=== PATIENT | female | born 1985 | race Caucasian/White ===

== ENCOUNTER → 2016-06-16 | Outpatient (CLI) | payer BC ==
--- NOTE | 2016-06-17 07:12 | US ---
EXAMINATION TYPE: US thyroid st tissue head/neck DATE OF EXAM: 06/16/2016 3:52 PM COMPARISON: yes 2010 CLINICAL History: follow up nodule GLAND SIZE: Right Lobe: 5.9 x 2.4 x 2.6 cm Overall Parenchyma: heterogenous Left Lobe: 5.6 x 2.4 x 2.4 cm Overall Parenchyma: heterogeneous Isthmus Thickness: 0.5 cm NODULES RIGHT: # of nodules measured on right: 1 1. 0.7X 0.5 x1.5 cm isoechoicsolid nodule at the lower pole with well-defined margins; . This nod ule is wider than tall and shows no intranodular vascularity. Prior size: not seen LEFT: # of nodules measured on left: 1 1. 1.0 X 0.7 x 0.4 cm echogenic solid nodule at the lower pole with well-defined margins; . This n odule is wider than tall and shows no intranodular vascularity. Prior size: 0.9 x 0.9 x 0.7 cm TECHNOLOGIST IMPRESSION: Bilateral neck scanned, no abnormal lymphadenopathy noted. The thyroid gland is enlarged with heterogeneous tissue bilaterally IMPRESSION: There is a single nodule noted bilaterally as discussed above with no significant change in the previ ous nodule. New nodule on the right measures 1.5 cm in greatest axis. Correlate for thyroiditis
== END | disposition home or self-care (01) ==
LOC: RADUSWWP 15:25
PROVIDERS: ATTEND Internal Medicine Endocrinology, Diabetes & Metabolism
DX: E04.2 Nontoxic multinodular goiter (principal)
CPT/HCPCS: 76536

== ENCOUNTER → 2016-06-22 | Outpatient (CLI) | payer BC | END | disposition home or self-care (01) | LOC: LABWHC1 11:21 | PROVIDERS: ATTEND Internal Medicine Endocrinology, Diabetes & Metabolism | DX: E03.8 Other specified hypothyroidism (principal) | CPT/HCPCS: 36415; 84443 ==

== ENCOUNTER → 2016-08-17 | Outpatient (CLI) | payer BC | END | disposition home or self-care (01) | LOC: LABWHC1 12:59 | PROVIDERS: ATTEND Internal Medicine Endocrinology, Diabetes & Metabolism | DX: E03.8 Other specified hypothyroidism (principal) | CPT/HCPCS: 36415; 84443 ==

== ENCOUNTER → 2016-11-23 | Outpatient (CLI) | payer BC ==
[2016-11-23 17:18] VITALS: BP 123/84; PULSE 88; TEMP 98; BMI 49.1
== END | disposition home or self-care (01) ==
LOC: BARWHC3 15:44
PROVIDERS: ATTEND Surgery Plastic and Reconstructive Surgery
DX: Z01.818 Encounter for other preprocedural examination (principal); E66.01 Morbid (severe) obesity due to excess calories; Z68.42 Body mass index [BMI] 45.0-49.9, adult; E89.1 Postprocedural hypoinsulinemia; D50.8 Other iron deficiency anemias; E44.0 Moderate protein-calorie malnutrition; E55.9 Vitamin D deficiency, unspecified; E11.9 Type 2 diabetes mellitus without complications; I11.9 Hypertensive heart disease without heart failure; G47.30 Sleep apnea, unspecified
CPT/HCPCS: 99211

== ENCOUNTER 2016-12-28 09:40 | Day surgery (SDC) | payer BC ==
[2016-12-26 11:46] VITALS: BMI 50.5
[~2016-12-28 09:40] MED LIST: LACTATED RINGERS 1,000 ML IV SCH; LIDOCAINE 1% 20 ML VIAL (10MG/ML) FOR IV START INTRADERMA PRN
[2016-12-28 10:05] VITALS: RESP 16; TEMP 97.4
--- NOTE | 2016-12-28 10:06 | P.GSHP ---
History of Present Illness H&P Date: 12/28/16 CHIEF COMPLAINT: GERD HISTORY OF PRESENT ILLNESS: The patient is a 31-year-old female who presents reports gastroesophageal reflux disease. Upper endoscopy was offered for further evaluation and management. PAST MEDICAL HISTORY: Please see list. PAST SURGICAL HISTORY: Please see list. MEDICATIONS: Please see list. ALLERGIES: Please see list. SOCIAL HISTORY: No illicit drug use FAMILY HISTORY: No reports of Crohn disease or ulcerative colitis. REVIEW OF ORGAN SYSTEMS: CONSTITUTIONAL: No reports of fevers or chills. GI: Denies any blood in stools or constipation. PHYSICAL EXAM: VITAL SIGNS: Stable GENERAL: Well-developed and pleasant in no acute distress. HEENT: No scleral icterus. Extraocular movements grossly intact. Moist buccal mucosa. NECK: Supple without lymphadenopathy. CHEST: Unlabored respirations. Equal bilateral excursions. CARDIOVASCULAR: Regular rate and rhythm. Distal 2+ pulses. ABDOMEN: Soft, nondistended. MUSCULOSKELETAL: No clubbing, cyanosis, or edema. ASSESSMENT: 1. Gastroesophageal reflux disease PLAN: 1. 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, thyroid goiter & nodules History of Any Multi-Drug Resistant Organisms: None Reported Past Surgical History: No Surgical Hx Reported Additional Past Surgical History / Comment(s): wisdom teeth Past Anesthesia/Blood Transfusion Reactions: Family History of Problems w/ Anesthesia Additional Past Anesthesia/Blood Transfusion Reaction / Comment(s): pt never had anesthesia, grandfather had some kind of problem w/anesthesia but not sure what Smoking Status: Never smoker - Past Family History Mother Family Medical History: No Reported History Medications and Allergies Home Medications Medication Instructions Recorded Confirmed Type Levothyroxine Sodium [Synthroid] 250 mcg PO DAILY 11/23/16 12/26/16 History metFORMIN HCL [Metformin HCl] 1,000 mg PO BID 11/23/16 12/26/16 History ALPRAZolam [Xanax] 0.5 mg PO BID PRN 12/26/16 12/26/16 History Allergies Allergy/AdvReac Type Severity Reaction Status Date / Time acetaminophen Allergy Rash/Hives Verified 12/26/16 11:00 [From Tylenol-Codeine] codeine phosphate Allergy Rash/Hives Verified 12/26/16 11:00 [From Tylenol-Codeine] Surgical - Exam Vital Signs Temp Pulse Resp BP Pulse Ox 97.4 F L 70 16 133/73 98 12/28/16 10:04 12/28/16 10:04 12/28/16 10:04 12/28/16 10:04 12/28/16 10:04
[2016-12-28 10:17] LABS: Glucose,Whole Blood 97 mg/dL (75-99)
[2016-12-28] MEDS ORDERED: LIDOCAINE 1% 20 ML VIAL (10MG/ML) FOR IV START INTRADERMA ONE (10:20)
[2016-12-28] MEDS ORDERED: LIDOCAINE 1% INJ 10MG/ML (20 ML MDV) ONE (10:29)
[2016-12-28] MEDS ORDERED: PROPOFOL 10 MG/ML 20 ML VIAL IV ONE (10:29)
--- NOTE | 2016-12-28 10:44 | P.PCN ---
Date of Procedure: 12/28/16 Preoperative Diagnosis: Postoperative Diagnosis: Procedure(s) Performed: Implants: Indications for Procedure: Operative Findings: Description of Procedure: PREOPERATIVE DIAGNOSIS: Gastroesophageal reflux disease. Morbid obesity. POSTOPERATIVE DIAGNOSIS: Morbid obesity. Gastritis. Gastroesophageal reflux disease. Erosive esophagitis. OPERATION: Esophagogastroduodenoscopy with biopsies along antrum. SURGEON: Anastasia Alvarado MD ANESTHESIA: MAC. INDICATIONS: The patient is a 31-year-old female who presents with a history of reflux disease. Benefits and risks of the procedure were described. Informed consent was obtained. DESCRIPTION: The patient was brought into the endoscopy suite and laid in the left lateral decubitus position. An Olympus gastroscope was passed along the posterior oropharynx down to the distal esophagus where the squamocolumnar junction was encountered at 40 cm from the incisors. The stomach was entered and no bile reflux was found. Additional findings are listed below. Biopsies with cold forceps were obtained of the antrum. The first through third portion of the duodenum was examined and unremarkable. Retroflexion of the scope confirmed Hill grade 2 lower esophageal valve. The squamocolumnar junction demostrated LA grade C erosive esophagitis. The stomach was desufflated. The patient tolerated the procedure well. FINDINGS: Squamocolumnar junction 40 cm from the incisors. Diaphragmatic hiatus at 40 cm. Hill grade 2 lower esophageal valve. LA grade C erosive esophagitis. No active duodenitis. Chronic gastritis. RECOMMENDATIONS: Start medical therapy. Further recommendations pending results of pathology report. Upper endoscopy as needed. Will benefit from antireflux surgical procedure Plan - Discharge Summary New Discharge Prescriptions: No Action Levothyroxine Sodium [Synthroid] 250 mcg PO DAILY metFORMIN HCL [Metformin HCl] 1,000 mg PO BID ALPRAZolam [Xanax] 0.5 mg PO BID PRN PRN Reason: Anxiety Discharge Medication List Levothyroxine Sodium [Synthroid] 250 mcg PO DAILY 11/23/16 [History] metFORMIN HCL [Metformin HCl] 1,000 mg PO BID 11/23/16 [History] ALPRAZolam [Xanax] 0.5 mg PO BID PRN 12/26/16 [History] Follow up Appointment(s)/Referral(s): Anastasia Alvarado MD [STAFF PHYSICIAN] - 01/11/17 Patient Instructions/Handouts: Gastritis (GEN), Diet for Stomach Ulcers and Gastritis (GEN) Discharge Disposition: HOME SELF-CARE
[2016-12-28 11:09] VITALS: PULSE 79
[2016-12-28 11:36] VITALS: BP 130/70
== END 2016-12-28 12:10 | disposition home or self-care (01) ==
LOC: ORWHC2ENDO 09:40
PROVIDERS: ATTEND Surgery Plastic and Reconstructive Surgery
DX: K29.50 Unspecified chronic gastritis without bleeding (principal); K21.0 Gastro-esophageal reflux disease with esophagitis; E66.01 Morbid (severe) obesity due to excess calories; J45.909 Unspecified asthma, uncomplicated; E11.9 Type 2 diabetes mellitus without complications; E06.3 Autoimmune thyroiditis; Z79.84 Long term (current) use of oral hypoglycemic drugs; Z79.899 Other long term (current) drug therapy; Z88.6 Allergy status to analgesic agent; Z88.5 Allergy status to narcotic agent
CPT/HCPCS: 81025; 88305; 88342; 43239; J2001; J2704

== ENCOUNTER → 2017-01-11 | Outpatient (CLI) | payer BC ==
[2017-01-11 15:53] VITALS: BP 144/68; PULSE 82; TEMP 98
[2017-01-11 15:55] VITALS: BMI 50.3
[2017-01-11 16:51] LABS: EKG EKG PERFORMED
[2017-01-11 17:11] LABS: CH 29.7; CHCM 34.2; HCT 42.7 % (34.0-46.0); HDW 2.67; MCH 28.6 pg (25.0-35.0); MCHC 32.8 g/dL (31.0-37.0); MCV 87.2 fL (80.0-100.0); RBC 4.89 m/uL (3.80-5.40); RDW 14.3 % (11.5-15.5); WBC 9.5 k/uL (3.8-10.6)
[2017-01-11 17:45] LABS: ALT 43 U/L (9-52); AST 20 U/L (14-36); Alkaline Phosphatase 67 U/L (38-126); Anion Gap 9 mmol/L; Blood Urea Nitrogen 13 mg/dL (7-17); Calcium 9.6 mg/dL (8.4-10.2); Carbon Dioxide 25 mmol/L (22-30); Chloride 106 mmol/L (98-107); Cholesterol 186 mg/dL (<200); Glucose 94 mg/dL (74-99); HDL Cholesterol 55 mg/dL (40-60); Iron 65 ug/dL (37-170); Non-African American GFR(MDRD) >60 (>60 ml/min/1.73 sqM); Potassium 4.4 mmol/L (3.5-5.1); Sodium 140 mmol/L (137-145); Total Bilirubin 0.4 mg/dL (0.2-1.3); Total Protein 7.1 g/dL (6.3-8.2)
[2017-01-11 18:01] LABS: % Iron Saturation 17.4 % (20-50); Total Iron Binding Capacity 373 ug/dL (265-497)
[2017-01-11 18:50] LABS: Vitamin B12 312 pg/mL (239-931)
--- NOTE | 2017-01-22 17:42 | P.PN ---
Progress Note - Text DATE OF SERVICE: 01/11/2017 CHIEF COMPLAINT: Bariatric assessment. HISTORY OF PRESENT ILLNESS: Aurora Barker is a 31-year-old female who presents with a long-standing history of morbid obesity. She presented to the bariatric program almost 2 months ago. As a result of her morbid obesity, she developed hypertension including sleep apnea. She completed an upper endoscopy. At her height of 5 foot 2.25, her ideal body weight is 135 pounds. Today she comes in at 277 pounds. She has gained 6 pounds in 2 months. Her highest weight was 281 pounds. She is 142 pounds overweight. PAST MEDICAL HISTORY: 1. Diabetes type 2. 2. Hypothyroidism. 3. Morbid obesity. 4. Vitamin D deficiency. 5. Osteoarthritis of the bilateral knees. PAST SURGICAL HISTORY: 1. Upper endoscopy. 2. Denies any abdominal surgeries. HOME MEDICATIONS: 1. Metformin. 2. Synthroid. 3. Vitamin D. ALLERGIES: 1. Codeine. SOCIAL HISTORY: No active tobacco use. FAMILY HISTORY: Denies any DVTs, pulmonary embolisms in her family. Denies any ulcerative colitis disease or Crohn's. She does have a family history of morbid obesity. REVIEW OF ORGAN SYSTEMS: CONSTITUTIONAL: At her height of 5 foot 2.25, her ideal body weight is 135 pounds. Today she comes in at 277 pounds. Her highest weight was 281 pounds. She is 142 pounds overweight. Initial body mass index of 50.3. HEENT: Denies any active troubles with vision or hearing. ENDOCRINE: Has diabetes. Has hypothyroidism. CARDIOVASCULAR: No reports of palpitations or heart attacks or chest pain. RESPIRATORY: Has daytime somnolence. No recent asthma. GI: Denies any bright red blood per rectum, diarrhea or constipation. Has intermittent heartburn. MUSCULOSKELETAL: Describes generalized muscle aches. Has any pain. NEURO: No reports of headaches or seizure disorders. PSYCH: No depression without suicidal ideation. Has anxiety. HEMATOLOGIC: Denies any abnormal bleeding or bruising. SKIN: Has panniculitis. No skin rash. PHYSICAL EXAM: VITAL SIGNS: height 5 foot 2.25 inches, weight 277 pounds. BMI 50.3. Vital Signs 01/11/17 15:43 Temperature 98 F Pulse Rate 82 Blood Pressure 144/68 GENERAL: Well-developed female in no acute distress. HEENT: No scleral icterus. Extraocular was grossly intact. No nasal drainage. NECK: Supple without lymphadenopathy. CHEST: Nonlabored respirations with equal bilateral excursions. CARDIOVASCULAR: Regular rate. Distal 2+ pulses. ABDOMEN: Obese, soft, nontender, nondistended. MUSCULOSKELETAL: No clubbing, cyanosis, or edema. Gross strength 5/5 distal lower extremities. NEURO: No focal or lateralizing signs. Cranial nerves 2 through 12 grossly within normal limits. PSYCH: Appropriate affect. Alert and oriented to person, place and time. SKIN: Well perfused. Good skin turgor. LABS: Elevated TSH, Vitamin D deficiency. Laboratory Last Values WBC 9.5 k/uL (3.8-10.6) 01/11/17 16:45 RBC 4.89 m/uL (3.80-5.40) 01/11/17 16:45 Hgb 14.0 gm/dL (11.4-16.0) 01/11/17 16:45 Hct 42.7 % (34.0-46.0) 01/11/17 16:45 MCV 87.2 fL (80.0-100.0) 01/11/17 16:45 MCH 28.6 pg (25.0-35.0) 01/11/17 16:45 MCHC 32.8 g/dL (31.0-37.0) 01/11/17 16:45 RDW 14.3 % (11.5-15.5) 01/11/17 16:45 Plt Count 295 k/uL (150-450) 01/11/17 16:45 Sodium 140 mmol/L (137-145) 01/11/17 16:45 Potassium 4.4 mmol/L (3.5-5.1) 01/11/17 16:45 Chloride 106 mmol/L (98-107) 01/11/17 16:45 Carbon Dioxide 25 mmol/L (22-30) 01/11/17 16:45 Anion Gap 9 mmol/L 01/11/17 16:45 BUN 13 mg/dL (7-17) 01/11/17 16:45 Creatinine 0.90 mg/dL (0.52-1.04) 01/11/17 16:45 Est GFR (MDRD) Af Amer >60 (>60 ml/min/1.73 sqM) 01/11/17 16:45 Est GFR (MDRD) Non-Af >60 (>60 ml/min/1.73 sqM) 01/11/17 16:45 Glucose 94 mg/dL (74-99) 01/11/17 16:[address] Glu mg/dL 97 mg/dL 01/11/17 16:45 Hemoglobin A1c 5.0 % (4.2-6.1) 01/11/17 16:45 Calcium 9.6 mg/dL (8.4-10.2) 01/11/17 16:45 Iron 65 ug/dL (37-170) 01/11/17 16:45 TIBC 373 ug/dL (265-497) 01/11/17 16:45 % Saturation 17.4 % (20-50) L 01/11/17 16:45 Ferritin 45 ng/mL (6-137) 01/11/17 16:45 Total Bilirubin 0.4 mg/dL (0.2-1.3) 01/11/17 16:45 AST 20 U/L (14-36) 01/11/17 16:45 ALT 43 U/L (9-52) 01/11/17 16:45 Alkaline Phosphatase 67 U/L (38-126) 01/11/17 16:45 Total Protein 7.1 g/dL (6.3-8.2) 01/11/17 16:45 Albumin 4.4 g/dL (3.5-5.0) 01/11/17 16:45 Triglycerides 210 mg/dL (<150) H 01/11/17 16:45 Cholesterol 186 mg/dL (<200) 01/11/17 16:45 LDL Cholesterol, Calc 89 mg/dL (0-99) 01/11/17 16:45 HDL Cholesterol 55 mg/dL (40-60) 01/11/17 16:45 Vitamin B1 47 ug/L (38-122) 01/11/17 16:45 Vitamin B12 312 pg/mL (239-931) 01/11/17 16:45 Vitamin D 25-Hydroxy 19.9 ng/mL (30.0-100.0) L 01/11/17 16:45 Folate 8.74 ng/mL (>2.75) 01/11/17 16:45 TSH 9.640 mIU/L (0.465-4.680) H 01/11/17 16:45 EKG EKG PERFORMED 01/11/17 16:45 EGD FINDINGS: Squamocolumnar junction 40 cm from the incisors. Diaphragmatic hiatus at 40 cm. Hill grade 2 lower esophageal valve. LA grade C erosive esophagitis. No active duodenitis. Chronic gastritis. EKG: Normal. ASSESSMENT: 1. Morbid obesity due to excess calories. 2. Body mass index of 50.3 3. Diabetes type 2, [id number]. 4. Hypothyroidism. 5. Vitamin D deficiency. 6. Osteoarthritis of the bilateral knees. 7. Chronic gastritis. PLAN: 1. Psych assessment per insurance. 2. Medical risk assessment. 3. Recommend treatment vitamin D deficiency. 4. Recommend increase of Synthroid level. 5. Recommend bariatric dietitian evaluation. 6. [place] [facility] data were reviewed in detail including benefits and risk of sleeve, band, gastric bypass. 7. Follow up upon completion of bariatric profile.
== END | disposition home or self-care (01) ==
LOC: BARWHC3 14:17
PROVIDERS: ATTEND Surgery Plastic and Reconstructive Surgery
DX: Z48.815 Encounter for surgical aftercare following surgery on the digestive system (principal); E11.9 Type 2 diabetes mellitus without complications; E03.9 Hypothyroidism, unspecified; E55.9 Vitamin D deficiency, unspecified; M17.0 Bilateral primary osteoarthritis of knee; K29.50 Unspecified chronic gastritis without bleeding; E66.01 Morbid (severe) obesity due to excess calories; Z68.43 Body mass index [BMI] 50.0-59.9, adult; E88.81 Metabolic syndrome and other insulin resistance; D50.8 Other iron deficiency anemias; I11.9 Hypertensive heart disease without heart failure; Z88.5 Allergy status to narcotic agent; Z98.84 Bariatric surgery status
CPT/HCPCS: 36415; 80053; 80061; 82306; 82607; 82728; 82746; 83036; 83540; 83550; 84425; 84443; 85027; 93005; 99211

== ENCOUNTER 2017-12-03 17:21 | Emergency (ER) | payer BC ==
--- NOTE | 2017-12-03 18:36 | ED ---
General Adult HPI - General Chief complaint: Head Injury Stated complaint: head injury (headboard fell) Time Seen by Provider: 12/03/17 17:55 Source: patient, RN notes reviewed Mode of arrival: ambulatory Limitations: no limitations - History of Present Illness Initial comments: 32-year-old female presents to the emergency department for a chief complaint of head injury occurring about one hour ago. Patient states she was sitting on the floor when a heavy wooden headboard fell and hit her in the back of the head. Patient denies any loss of consciousness. Patient does admit to a mild headache at this time. Patient denies any nausea, vomiting, confusion. Patient denies any new neck pain. She states she has chronic neck pain but this has not changed since the incident. Patient denies sustaining any other injuries.Patient has no other complaints at this time including shortness of breath, chest pain, abdominal pain, nausea or vomiting, headache, or visual changes. - Related Data Home Medications Medication Instructions Recorded Confirmed Levothyroxine Sodium [Synthroid] 250 mcg PO DAILY 11/23/16 12/03/17 metFORMIN HCL [Metformin HCl] 1,000 mg PO BID 11/23/16 12/03/17 Allergies Allergy/AdvReac Type Severity Reaction Status Date / Time acetaminophen Allergy Rash/Hives Verified 12/03/17 17:43 [From Tylenol-Codeine] codeine phosphate Allergy Rash/Hives Verified 12/03/17 17:43 [From Tylenol-Codeine] Review of Systems ROS Statement: Those systems with pertinent positive or pertinent negative responses have been documented in the HPI. ROS Other: All systems not noted in ROS Statement are negative. 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, thyroid goiter & nodules History of Any Multi-Drug Resistant Organisms: None Reported Past Surgical History: No Surgical Hx Reported Additional Past Surgical History / Comment(s): wisdom teeth Past Anesthesia/Blood Transfusion Reactions: Family History of Problems w/ Anesthesia Additional Past Anesthesia/Blood Transfusion Reaction / Comment(s): pt never had anesthesia, grandfather had some kind of problem w/anesthesia but not sure what Past Psychological History: No Psychological Hx Reported Smoking Status: Never smoker Past Alcohol Use History: None Reported Past Drug Use History: None Reported - Past Family History Mother Family Medical History: No Reported History General Exam Limitations: no limitations General appearance: alert, in no apparent distress Head exam: Present: normocephalic, other (There is a 2 cm x 2 cm hematoma noted on the right parietal scalp) Eye exam: Present: normal appearance, PERRL, EOMI, other (Negative raccoon sign) . Absent: scleral icterus, conjunctival injection, periorbital swelling, periorbital tenderness ENT exam: Present: normal exam, normal oropharynx, mucous membranes moist, TM's normal bilaterally (Negative hemotympanum), normal external ear exam (Negative Middleton sign) Neck exam: Present: normal inspection, full ROM (Patient has full flexion and extension and rotation of the neck bilaterally). Absent: tenderness (No tenderness in the cervical spine), meningismus, lymphadenopathy Respiratory exam: Present: normal lung sounds bilaterally. Absent: respiratory distress, wheezes, rales, rhonchi, stridor Cardiovascular Exam: Present: regular rate, normal rhythm, normal heart sounds. Absent: systolic murmur, diastolic murmur, rubs, gallop, clicks Back exam: Present: normal inspection, full ROM. Absent: tenderness Neurological exam: Present: alert, oriented X3, CN II-XII intact, other (GCS 15 , negative arm drift, strength in upper and lower extremities 5 out of 5 bilaterally). Absent: motor sensory deficit Course Vital Signs 12/03/17 17:40 Temperature 98.1 F Pulse Rate 85 Respiratory 16 Rate O2 Sat by Pulse 98 Oximetry Medical Decision Making - Medical Decision Making 32-year-old female presents to the emergency department for a chief complaint of head injury occurring about 1.5 hours ago. Patient was sitting on the floor when a heavy wooden headboard fell and hit her in the head. No loss of consciousness, vomiting, confusion. Patient denies neck or back pain or any other injuries. On exam there is a 2 cm hematoma noted on the right parietal scalp. No focal neuro deficits. GCS 15. I discussed with the patient the risks versus the benefits of CAT scan including radiation. Patient would like a CAT scan at this time. Family member with her agrees because she states "it hit her really hard in the head." CT of the brain shows no acute intracranial hemorrhage. Normal CT brain. CT cervical spine shows no acute fractures evident. Normal cervical spine. Patient will be discharged home with motrin for pain as she is allergic to tylenol. She is to monitor for worsening symptoms such as severe headache, vomiting, or confusion return if this occurs. Otherwise she is to follow up with primary care in 1-2 days. Disposition Clinical Impression: Closed head injury Disposition: HOME SELF-CARE Condition: Good Instructions: Concussion (ED), Head Injury (ED) Additional Instructions: Please take Motrin for pain. Please monitor for any worsening symptoms such as severe headache, vomiting, or confusion and return if these or any other concerns occur. Otherwise follow-up with primary care in 1-2 days. Is patient prescribed a controlled substance at d/c from ED?: No Referrals: Garfield Oneill MD [Primary Care Provider] - 1-2 days Time of Disposition: 18:48
--- NOTE | 2017-12-03 18:40 | CT ---
EXAMINATION TYPE: CT brain fabrizio wo con DATE OF EXAM: 12/03/2017 COMPARISON: NONE HISTORY: Laceration and VALLE after head injury from falling object CT DLP: 1512.7 mGycm, Automated exposure control for dose reduction was used. CONTRAST: None CT of the brain is performed utilizing 3 mm thick sections through the posterior fossa and 3 mm thick sections through the remaining calvarium. Study is performed within 24 hours of arrival to the hospital. No abnormal hyperdensity is present to suggest an acute intracranial hemorrhage. No mass lesion is evident. No acute infarcts are evident. Ventricles and sulci are appropriate for the patient age. Some subtle soft tissue swelling is over the right parietal-occipital region. No underlying fracture is evident. Paranasal sinuses and mastoid air cells within the [id number] are clear. IMPRESSIONS: 1. Normal CT brain. 2. Mild soft tissue swelling posterior right occipital region. CT cervical spine. COMPARISON: None CT of the cervical spine is performed in the axial plane at 2 mm thick sections. Reconstructed image s in the coronal, and sagittal plane are reviewed on the computer. No acute fractures are evident. C1 appears intact. Vertebral body alignment is normal. Disc heights are preserved. Vertebral body heights are preserved. No spinal canal stenosis is evident. No neural foraminal stenosis is evident. IMPRESSIONS: 1. Normal CT cervical spine.
[2017-12-03 19:02] VITALS: BP 140/69; PULSE 64; RESP 18; TEMP 98.7
== END 2017-12-03 19:01 | disposition home or self-care (01) ==
LOC: EC 17:21
DX: S09.90XA Unspecified injury of head, initial encounter (principal); E11.9 Type 2 diabetes mellitus without complications; E07.9 Disorder of thyroid, unspecified; Z79.84 Long term (current) use of oral hypoglycemic drugs; Z79.899 Other long term (current) drug therapy; Z88.5 Allergy status to narcotic agent; Z88.6 Allergy status to analgesic agent; W22.8XXA Striking against or struck by other objects, initial encounter
CPT/HCPCS: 70450; 72125; 99283

== ENCOUNTER → 2018-05-28 | Outpatient (CLI) | payer BC ==
[2018-05-28 18:00] LABS: T4, Free (Free Thyroxine) 0.95 ng/dL (0.78-2.19)
--- NOTE | 2018-05-29 07:30 | US ---
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 GLAND SIZE: Right Lobe: 7.2 x 2.8 x 2.7 cm Overall Parenchyma: grossly heterogenous Left Lobe: 6.3 x 2.3 x 2.5 cm Overall Parenchyma: grossly heterogenous Isthmus Thickness: 0.6 cm NODULES RIGHT: # of nodules measured on right: 0 LEFT: # of nodules measured on left: 0 ISTHMUS: # of nodules measured in the isthmus: 0 Bilateral neck scanned, no evidence of lymphadenopathy. Unable to reproduce nodules seen on previous study in today's exam. IMPRESSION: The previously measured subcentimeter thyroid nodules on the exam of 06/16/2016 are not discretely arie urable on today's examination given the diffuse thyroid parenchymal heterogeneity. Diffuse heterogene ity and thyroid enlargement suggests thyroiditis.
== END ==
LOC: RADUSWWP 15:59
PROVIDERS: ATTEND Internal Medicine Endocrinology, Diabetes & Metabolism
DX: E04.2 Nontoxic multinodular goiter (principal); E03.8 Other specified hypothyroidism
CPT/HCPCS: 76536; 84439; 84443

== ENCOUNTER 2019-05-21 07:44 | Emergency (ER) | payer OTHER, BC ==
[2019-05-21 07:56] VITALS: RESP 18; TEMP 97.7
[2019-05-21] MEDS ORDERED: SODIUM CHLORIDE 0.9% 1,000 ML IV STA (08:10)
[2019-05-21] MEDS ORDERED: KETOROLAC 30 MG/ML 1 ML VIAL IVP STA (08:11)
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
[2019-05-21 08:47] LABS: Appearance,Urine Clear (Clear); Bilirubin,Urine Negative (Negative); Blood,Urine Negative (Negative); Color,Urine Yellow; Glucose,Urine (UA) Negative (Negative); Ketones,Urine Negative (Negative); Leukocyte Esterase,Urine Trace (Negative); Mucus,Urine Rare /hpf; Nitrite,Urine Negative (Negative); Protein,Urine Negative (Negative); RBC,Urine 2 /hpf (0-5); Squamous Epithelial Cell,Urine 3 /hpf (0-4); Urobilinogen,Urine <2.0 mg/dL (<2.0); WBC,Urine 1 /hpf (0-5)
[2019-05-21 08:58] LABS: Basophils # (A) 0.1 k/uL (0-0.2); Basophils % (A) 1 %; Eosinophils # (A) 0.3 k/uL (0-0.7); Eosinophils % (A) 4 %; HCT 40.6 % (34.0-46.0); HGB 13.7 gm/dL (11.4-16.0); Lymphocytes # (A) 1.8 k/uL (1.0-4.8); Lymphocytes % (A) 24 %; MCH 29.2 pg (25.0-35.0); MCHC 33.7 g/dL (31.0-37.0); MCV 86.7 fL (80.0-100.0); Mean Platelet Volume 9.2; Monocytes # (A) 0.4 k/uL (0-1.0); Monocytes % (A) 5 %; Neutrophils # (A) 4.9 k/uL (1.3-7.7); Neutrophils % (A) 65 %; Platelet Count 265 k/uL (150-450); RBC 4.68 m/uL (3.80-5.40); RDW 13.3 % (11.5-15.5); WBC 7.4 k/uL (3.8-10.6)
[2019-05-21 09:09] LABS: ALT 39 U/L (9-52); AST 33 U/L (14-36); African American GFR (CKD) >90 (>60 ml/min/1.73 sqM); Albumin 4.1 g/dL (3.5-5.0); Alkaline Phosphatase 55 U/L (38-126); Anion Gap 9 mmol/L; Blood Urea Nitrogen 11 mg/dL (7-17); Calcium 9.1 mg/dL (8.4-10.2); Carbon Dioxide 25 mmol/L (22-30); Chloride 108 mmol/L (98-107); Creatine Kinase 74 U/L (30-135); Glucose 134 mg/dL (74-99); Non-African American GFR(CKD) >90 (>60 ml/min/1.73 sqM); Potassium 4.2 mmol/L (3.5-5.1); Sodium 142 mmol/L (137-145); Total Bilirubin 0.5 mg/dL (0.2-1.3); Total Protein 6.8 g/dL (6.3-8.2)
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
[2019-05-21 10:33] VITALS: BP 122/78; PULSE 80
== END 2019-05-21 10:29 | disposition home or self-care (01) ==
LOC: EC 07:44
DX: R10.2 Pelvic and perineal pain (principal); M54.5 Low back pain; R82.998 Other abnormal findings in urine; R32 Unspecified urinary incontinence; E06.3 Autoimmune thyroiditis; Z88.5 Allergy status to narcotic agent; Z88.6 Allergy status to analgesic agent; Z79.84 Long term (current) use of oral hypoglycemic drugs; Z79.890 Hormone replacement therapy; Z86.39 Personal history of other endocrine, nutritional and metabolic disease; Z91.410 Personal history of adult physical and sexual abuse; V43.52XA Car driver injured in collision with other type car in traffic accident, initial encounter; Y93.89 Activity, other specified; Y92.410 Unspecified street and highway as the place of occurrence of the external cause; Z53.29 Procedure and treatment not carried out because of patient's decision for other reasons
CPT/HCPCS: 99284; 96374; 96361; 36415; 80053; 82550; 85025; 81001; 81025; 72132; 74177; J1885; Q9967

== ENCOUNTER 2020-11-09 05:34 | Emergency (ER) | payer BC, OTHER ==
[2020-11-09 05:40] VITALS: TEMP 97.3
[2020-11-09] MEDS ORDERED: HYDROmorphone 1 MG/ML 1 ML SYRINGE IVP STA (05:44)
[2020-11-09] MEDS ORDERED: SODIUM CHLORIDE 0.9% 1,000 ML IV STA (05:44)
--- NOTE | 2020-11-09 05:45 | ED ---
Abdominal Pain HPI - General Chief Complaint: Abdominal Pain Stated Complaint: Abd Pain Time Seen by Provider: 11/09/20 05:43 Source: patient Mode of arrival: ambulatory Limitations: no limitations - Related Data Home Medications Medication Instructions Recorded Confirmed Levothyroxine Sodium [Synthroid] 250 mcg PO DAILY 11/23/16 12/03/17 metFORMIN HCL [Metformin HCl] 1,000 mg PO BID 11/23/16 12/03/17 Allergies Allergy/AdvReac Type Severity Reaction Status Date / Time acetaminophen Allergy Rash/Hives Verified 11/09/20 05:38 [From Tylenol-Codeine] codeine phosphate Allergy Rash/Hives Verified 11/09/20 05:38 [From Tylenol-Codeine] Review of Systems ROS Statement: Those systems with pertinent positive or pertinent negative responses have been documented in the HPI. ROS Other: All systems not noted in ROS Statement are negative. 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, thyroid goiter & nodules History of Any Multi-Drug Resistant Organisms: None Reported Past Surgical History: No Surgical Hx Reported Additional Past Surgical History / Comment(s): wisdom teeth Past Anesthesia/Blood Transfusion Reactions: Family History of Problems w/ Anesthesia Additional Past Anesthesia/Blood Transfusion Reaction / Comment(s): pt never had anesthesia, grandfather had some kind of problem w/anesthesia but not sure what Past Psychological History: No Psychological Hx Reported Smoking Status: Never smoker Past Alcohol Use History: None Reported Past Drug Use History: None Reported - Past Family History Mother Family Medical History: No Reported History General Exam Limitations: no limitations Course Vital Signs 11/09/20 11/09/20 05:38 07:08 Temperature 97.3 F L Pulse Rate 105 H 98 Respiratory 22 18 Rate Blood Pressure 167/90 153/79 O2 Sat by Pulse 95 97 Oximetry Medical Decision Making - Lab Data Result diagrams: 11/09/20 06:09 11/09/20 06:09 Lab Results 11/09/20 11/09/20 11/09/20 Range/Units 06:09 06:09 06:09 WBC 8.2 (3.8-10.6) k/uL RBC 4.85 (3.80-5.40) m/uL Hgb 13.6 (11.4-16.0) gm/dL Hct 40.9 (34.0-46.0) % MCV 84.3 (80.0-100.0) fL MCH 28.1 (25.0-35.0) pg MCHC 33.3 (31.0-37.0) g/dL RDW 14.7 (11.5-15.5) % Plt Count 222 (150-450) k/uL MPV 8.7 Neutrophils % 57 % Lymphocytes % 33 % Monocytes % 5 % Eosinophils % 4 % Basophils % 1 % Neutrophils # 4.6 (1.3-7.7) k/uL Lymphocytes # 2.7 (1.0-4.8) k/uL Monocytes # 0.4 (0-1.0) k/uL Eosinophils # 0.3 (0-0.7) k/uL Basophils # 0.1 (0-0.2) k/uL PT 9.4 (9.0-12.0) sec INR 0.8 (<1.2) APTT 21.0 L (22.0-30.0) sec Sodium 135 L (137-145) mmol/L Potassium 4.2 (3.5-5.1) mmol/L Chloride 102 (98-107) mmol/L Carbon Dioxide 24 (22-30) mmol/L Anion Gap 9 mmol/L BUN 11 (7-17) mg/dL Creatinine 0.72 (0.52-1.04) mg/dL Est GFR (CKD-EPI)AfAm >90 (>60 ml/min/1.73 sqM) Est GFR (CKD-EPI)NonAf >90 (>60 ml/min/1.73 sqM) Glucose 213 H (74-99) mg/dL Plasma Lactic Acid Praneeth (0.7-2.0) mmol/L Calcium 9.4 (8.4-10.2) mg/dL Total Bilirubin 0.1 L (0.2-1.3) mg/dL AST 34 (14-36) U/L ALT 30 (4-34) U/L Alkaline Phosphatase 89 (38-126) U/L Total Protein 6.7 (6.3-8.2) g/dL Albumin 4.2 (3.5-5.0) g/dL Amylase 45 (30-110) U/L Lipase 271 (23-300) U/L 11/09/20 Range/Units 06:09 WBC (3.8-10.6) k/uL RBC (3.80-5.40) m/uL Hgb (11.4-16.0) gm/dL Hct (34.0-46.0) % MCV (80.0-100.0) fL MCH (25.0-35.0) pg MCHC (31.0-37.0) g/dL RDW (11.5-15.5) % Plt Count (150-450) k/uL MPV Neutrophils % % Lymphocytes % % Monocytes % % Eosinophils % % Basophils % % Neutrophils # (1.3-7.7) k/uL Lymphocytes # (1.0-4.8) k/uL Monocytes # (0-1.0) k/uL Eosinophils # (0-0.7) k/uL Basophils # (0-0.2) k/uL PT (9.0-12.0) sec INR (<1.2) APTT (22.0-30.0) sec Sodium (137-145) mmol/L Potassium (3.5-5.1) mmol/L Chloride (98-107) mmol/L Carbon Dioxide (22-30) mmol/L Anion Gap mmol/L BUN (7-17) mg/dL Creatinine (0.52-1.04) mg/dL Est GFR (CKD-EPI)AfAm (>60 ml/min/1.73 sqM) Est GFR (CKD-EPI)NonAf (>60 ml/min/1.73 sqM) Glucose (74-99) mg/dL Plasma Lactic Acid Praneeth 2.5 H* (0.7-2.0) mmol/L Calcium (8.4-10.2) mg/dL Total Bilirubin (0.2-1.3) mg/dL AST (14-36) U/L ALT (4-34) U/L Alkaline Phosphatase (38-126) U/L Total Protein (6.3-8.2) g/dL Albumin (3.5-5.0) g/dL Amylase (30-110) U/L Lipase (23-300) U/L Disposition Clinical Impression: Abdominal pain, Ovarian cyst rupture Disposition: HOME SELF-CARE Condition: Good Instructions (If sedation given, give patient instructions): Abdominal Pain (ED), Ruptured Ovarian Cyst (ED) Is patient prescribed a controlled substance at d/c from ED?: No Referrals: Shell Sosa MD [Primary Care Provider] - 1-2 days
[2020-11-09 06:23] LABS: Basophils # (A) 0.1 k/uL (0-0.2); Basophils % (A) 1 %; Eosinophils # (A) 0.3 k/uL (0-0.7); Eosinophils % (A) 4 %; HCT 40.9 % (34.0-46.0); HGB 13.6 gm/dL (11.4-16.0); Lymphocytes # (A) 2.7 k/uL (1.0-4.8); Lymphocytes % (A) 33 %; MCH 28.1 pg (25.0-35.0); MCHC 33.3 g/dL (31.0-37.0); MCV 84.3 fL (80.0-100.0); Mean Platelet Volume 8.7; Monocytes # (A) 0.4 k/uL (0-1.0); Monocytes % (A) 5 %; Neutrophils # (A) 4.6 k/uL (1.3-7.7); Neutrophils % (A) 57 %; Platelet Count 222 k/uL (150-450); RBC 4.85 m/uL (3.80-5.40); RDW 14.7 % (11.5-15.5); WBC 8.2 k/uL (3.8-10.6)
[2020-11-09 06:32] LABS: ALT 30 U/L (4-34); AST 34 U/L (14-36); African American GFR (CKD) >90 (>60 ml/min/1.73 sqM); Albumin 4.2 g/dL (3.5-5.0); Alkaline Phosphatase 89 U/L (38-126); Amylase 45 U/L (30-110); Anion Gap 9 mmol/L; Blood Urea Nitrogen 11 mg/dL (7-17); Calcium 9.4 mg/dL (8.4-10.2); Carbon Dioxide 24 mmol/L (22-30); Chloride 102 mmol/L (98-107); Glucose 213 mg/dL (74-99); Lipase 271 U/L (23-300); Non-African American GFR(CKD) >90 (>60 ml/min/1.73 sqM); Potassium 4.2 mmol/L (3.5-5.1); Sodium 135 mmol/L (137-145); Total Bilirubin 0.1 mg/dL (0.2-1.3); Total Protein 6.7 g/dL (6.3-8.2)
[2020-11-09 06:47] LABS: INR 0.8 (<1.2); Prothrombin Time 9.4 sec (9.0-12.0)
[2020-11-09 07:08] VITALS: BP 153/79; PULSE 98; RESP 18
--- NOTE | 2020-11-09 07:23 | CT ---
EXAMINATION TYPE: CT abdomen pelvis w con DATE OF EXAM: 11/09/2020 COMPARISON: CT 05/21/2019 HISTORY: Abdominal pain-generalized CT DLP: 3754 mGycm Automated exposure control for dose reduction was used. TECHNIQUE: Helical acquisition of images from the lung bases through the pelvis have been completed. CONTRAST: Performed without Oral Contrast and with IV Contrast, patient injected with 100 mL of Isovue 300. FINDINGS: LUNG BASES: No significant abnormality is appreciated. AORTA: No significant abnormality is appreciated. LIVER/GB: Liver shows low attenuation likely due to hepatic steatosis, there is a calcified gallstone as on prior exam, the liver is enlarged. PANCREAS: No significant abnormality is seen. SPLEEN: No significant abnormality is seen. ADRENALS: No significant abnormality is seen. KIDNEYS: No significant abnormality is seen. REPRODUCTIVE ORGANS: Right ovarian cystic focus measures 4 cm which is increased in size compared to prior, left ovarian follicle suspected which is decreased as compared to prior exam BOWEL: The appendix does not appear inflamed although there is some fluid present locally possibly r elated to the ovary FREE AIR: No Free Air visible. ASCITES: Small amount of fluid is present in the right lower quadrant possibly tracking from the rig ht ovary level. PELVIC ADENOPATHY: None visualized. RETROPERITONEAL ADENOPATHY: No Retroperitoneal Adenopathy visible. URINARY BLADDER: No significant abnormality is seen. OSSEOUS STRUCTURES: No significant abnormality is seen. IMPRESSION: HEPATOMEGALY AND HEPATIC STEATOSIS. THERE MAY BEEN A RECENT OVARIAN FOLLICLE RUPTURE, SOME LOCAL FLUI D IS PRESENT IN THE RIGHT LOWER QUADRANT NEAR THE LEVEL OF THE NONDILATED APPENDIX. CHOLELITHIASIS
[2020-11-09 07:39] LABS: Appearance,Urine Clear (Clear); Bilirubin,Urine Negative (Negative); Blood,Urine Negative (Negative); Color,Urine Light Yellow; Glucose,Urine (UA) Trace (Negative); Ketones,Urine Negative (Negative); Leukocyte Esterase,Urine Trace (Negative); Mucus,Urine Rare /hpf; Nitrite,Urine Negative (Negative); Protein,Urine Negative (Negative); RBC,Urine 1 /hpf (0-5); Squamous Epithelial Cell,Urine 1 /hpf (0-4); Urobilinogen,Urine <2.0 mg/dL (<2.0); WBC,Urine 1 /hpf (0-5)
== END 2020-11-09 07:36 | disposition home or self-care (01) ==
LOC: EC 05:34
DX: N83.291 Other ovarian cyst, right side (principal); J45.909 Unspecified asthma, uncomplicated; E11.9 Type 2 diabetes mellitus without complications; Z79.84 Long term (current) use of oral hypoglycemic drugs
CPT/HCPCS: 36415; 74177; 80053; 81001; 81025; 82150; 83605; 83690; 85025; 85610; 85730; 96361; 96374; 99284

== ENCOUNTER → 2021-03-31 | Outpatient (CLI) | payer BC | END | disposition home or self-care (01) | LOC: LABWHC1 08:18 | PROVIDERS: ATTEND Family Medicine | DX: E06.3 Autoimmune thyroiditis (principal); E03.9 Hypothyroidism, unspecified; E28.2 Polycystic ovarian syndrome; E24.9 Cushing's syndrome, unspecified | CPT/HCPCS: 36415; 82024; 82533; 83970 ==

== ENCOUNTER → 2021-04-02 | Outpatient (CLI) | payer BC | END | disposition home or self-care (01) | LOC: LABWHC1 08:08 | PROVIDERS: ATTEND Family Medicine | DX: Z53.9 Procedure and treatment not carried out, unspecified reason (principal) | CPT/HCPCS: 82530 ==

== ENCOUNTER 2021-05-10 14:47 | Emergency (ER) | payer OTHER, BC ==
[2021-05-10] MEDS ORDERED: HYDROmorphone 0.5 MG/0.5 ML SYRINGE IVP STA (15:22)
[2021-05-10 15:54] LABS: Basophils % (A) 0 %; Eosinophils # (A) 0.2 k/uL (0-0.7); Eosinophils % (A) 1 %; HCT 42.4 % (34.0-46.0); HGB 14.4 gm/dL (11.4-16.0); Lymphocytes # (A) 1.8 k/uL (1.0-4.8); Lymphocytes % (A) 15 %; MCH 28.2 pg (25.0-35.0); MCHC 33.9 g/dL (31.0-37.0); MCV 83.2 fL (80.0-100.0); Mean Platelet Volume 9.1; Monocytes # (A) 0.5 k/uL (0-1.0); Monocytes % (A) 4 %; Neutrophils # (A) 9.7 k/uL (1.3-7.7); Neutrophils % (A) 79 %; Platelet Count 265 k/uL (150-450); RBC 5.09 m/uL (3.80-5.40); RDW 13.9 % (11.5-15.5); WBC 12.2 k/uL (3.8-10.6)
[2021-05-10 16:10] LABS: ALT 26 U/L (4-34); AST 27 U/L (14-36); African American GFR (CKD) >90 (>60 ml/min/1.73 sqM); Albumin 4.5 g/dL (3.5-5.0); Alkaline Phosphatase 85 U/L (38-126); Anion Gap 11 mmol/L; Blood Urea Nitrogen 11 mg/dL (7-17); Calcium 9.3 mg/dL (8.4-10.2); Carbon Dioxide 19 mmol/L (22-30); Chloride 108 mmol/L (98-107); Glucose 140 mg/dL (74-99); Non-African American GFR(CKD) >90 (>60 ml/min/1.73 sqM); Potassium 4.3 mmol/L (3.5-5.1); Sodium 138 mmol/L (137-145); Total Bilirubin 0.3 mg/dL (0.2-1.3); Total Protein 7.7 g/dL (6.3-8.2)
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
[2021-05-10 19:00] VITALS: BP 107/65; PULSE 103; RESP 16; TEMP 97.9
== END 2021-05-10 19:02 | disposition home or self-care (01) ==
LOC: EC 14:47
DX: R51.9 Headache, unspecified (principal); M54.2 Cervicalgia; R07.9 Chest pain, unspecified; E11.9 Type 2 diabetes mellitus without complications; J45.909 Unspecified asthma, uncomplicated; Z79.84 Long term (current) use of oral hypoglycemic drugs; Z79.890 Hormone replacement therapy; Z79.899 Other long term (current) drug therapy; V43.52XA Car driver injured in collision with other type car in traffic accident, initial encounter; Y92.410 Unspecified street and highway as the place of occurrence of the external cause
CPT/HCPCS: 36415; 80053; 85025; 72170; 71046; 72125; 70450; 96374; 99284; J1170

== ENCOUNTER → 2021-05-12 | Outpatient (CLI) | payer OTHER ==
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
--- NOTE | 2021-05-12 17:43 | XR ---
EXAMINATION TYPE: XR ribs RT DATE OF EXAM: 05/12/2021 COMPARISON: None HISTORY: Right-sided upper rib pain and chest pain TECHNIQUE: Two-view right ribs FINDINGS: Reference appear intact. No acute fracture is evident. There is limitation due to motion ar tifact and body habitus. No obvious pneumothorax is evident. Follow-up can be performed. IMPRESSION: 1. Normal right ribs.
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
== END | disposition home or self-care (01) ==
LOC: LABWHC1 16:01
PROVIDERS: ATTEND Emergency Medicine
DX: N91.2 Amenorrhea, unspecified (principal); V89.2XXA Person injured in unspecified motor-vehicle accident, traffic, initial encounter; M54.18 Radiculopathy, sacral and sacrococcygeal region; R07.9 Chest pain, unspecified; R07.81 Pleurodynia; M25.519 Pain in unspecified shoulder
CPT/HCPCS: 72220; 81025

== ENCOUNTER → 2022-04-06 | Outpatient (CLI) | payer BC ==
--- NOTE | 2022-04-06 14:57 | P.HPBAR ---
Bariatric H&P - History & Physicial H&P Date: 04/06/22 History & Physicial: Visit/CC: Patient initial contact: Initial weight: Initial weight in pounds: Height: Initial BMI: Last weight: Current weight: Current weight in pounds: Current BMI: [place] body weight (based on NIH guidelines): Excess body weight loss: The patient is a 36 year-old F who presents for Bariatric Assessment. She is looking into the bypass. She has tried almost everything for divorce 5 years ago including weight watchers, phen-phen. She wants weight loss for herself. Most weight loss is 70 pounds with medical weight loss. Her highest is 300 pounds. Family with mother and dad-side. She has thyroid disorder and sees hospital supervisor. No moderate GERD. No prior DVTs. Mother and grandmother had blood clots. No stomach cancer, but uncle has esophageal cancer. No diarrhea. No IBD in the family. She has lower back pain on occasion, at her hips. No knee, ankles, or hips. She snores. 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, thyroid goiter & nodules History of Any Multi-Drug Resistant Organisms: None Reported Past Surgical History: No Surgical Hx Reported Additional Past Surgical History / Comment(s): wisdom teeth Past Anesthesia/Blood Transfusion Reactions: Family History of Problems w/ Anesthesia Additional Past Anesthesia/Blood Transfusion Reaction / Comm: pt never had anesthesia, grandfather had some kind of problem w/anesthesia but not sure what Past Psychological History: No Psychological Hx Reported Smoking Status: Never smoker Past Alcohol Use History: None Reported Past Drug Use History: None Reported - Past Family History Mother Family Medical History: No Reported History Bariatric Checklist Checklist: Plan: Checklist: EGD: 1. Hiatal hernia: 2. H. Pylori: HgbA1c: Vitamin D: Smoking: Never smoker Primary care physician referral: Psychiatry clearance: Cardiology clearance: Sleep study: Diet journal: VTE risk score: VTE risk level: Rehab needs at discharge:
[2022-04-06 15:23] VITALS: BP 118/74; PULSE 108; RESP 16; TEMP 98.2; BMI 50.5
[2022-04-06 16:47] LABS: INR 0.9 (<1.2); Prothrombin Time 9.9 sec (9.0-12.0)
[2022-04-06 23:50] LABS: HGB 14.4 g/dL (12.0-15.0); MCH 28.2 pg (27.0-32.0); MCHC 32.7 g/dL (32.0-37.0); MCV 86.3 fL (80.0-97.0); Mean Platelet Volume 12.5 fL (9.5-12.2); NRBC Per 100 WBC 0 /100 WBCS (0.0-0.0); Platelet Count 264 X 10*3/uL (140-440); RDW 13.9 % (11.5-14.5)
[2022-04-07 00:07] LABS: % Iron Saturation 16.2 (12.00-45.00); African American GFR (CKD) 96.1 (60.0-200.0); Albumin 4.3 g/dL (3.8-4.9); Albumin/Globulin Ratio 1.6 (1.60-3.17); Anion Gap 15.8 mmol/L (10.00-18.00); BUN/Creat Ratio 8.62 Ratio (12.00-20.00); Blood Urea Nitrogen 7.8 mg/dL (9.0-27.0); Carbon Dioxide 19.5 mmol/L (20.0-27.5); Globulin 2.7 g/dL (1.6-3.3); HDL Cholesterol 27.9 mg/dL (40.00-60.00); Magnesium 1.9 mg/dL (1.5-2.4); Phosphorus 2.5 mg/dL (2.4-5.1); Potassium 3.9 mmol/L (3.5-5.5); Prealbumin 20.3 mg/dL (18.0-42.0); Total Bilirubin 0.3 mg/dL (0.30-1.20); Total Protein 6.9 g/dL (6.2-8.2)
[2022-04-07 00:20] LABS: Chol/HDL Ratio 7.67 Ratio
[2022-04-07 14:36] LABS: Zinc, Serum 79 ug/dL (60-130)
[2022-04-08 08:33] LABS: Vitamin A 47 ug/dL (38-106)
[2022-04-08 09:08] LABS: Vit B1(Thiamine) 69 ug/L (38-122)
[2022-04-09 19:33] LABS: Anabasine Urine <2.0 ng/mL (<2.0)
[2022-04-10 23:04] LABS: Selenium 152 mcg/L (63-160)
== END ==
LOC: BARWHC3 14:17
PROVIDERS: ATTEND Surgery Plastic and Reconstructive Surgery
DX: E66.01 Morbid (severe) obesity due to excess calories (principal); Z71.51 Drug abuse counseling and surveillance of drug abuser; Z88.5 Allergy status to narcotic agent; Z68.43 Body mass index [BMI] 50.0-59.9, adult
CPT/HCPCS: 84255; 84134; 84425; 80061; 80053; 82607; 82728; 82525; 82746; 83540; 83550; 83735; 84100; 84443; 84590; 84630; 85027; 85610; 85730; 83721; 82306; 80323; 83970; 83036; 80307; 99203; 93005; 36415; G0482

== ENCOUNTER 2022-12-22 11:32 | Emergency (ER) | payer BC ==
[2022-12-22 11:54] VITALS: TEMP 97.9
[2022-12-22] MEDS ORDERED: SODIUM CHLORIDE 0.9% 1,000 ML IV STA (12:15)
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
[2022-12-22 12:31] LABS: Basophils % (A) 0 %; Eosinophils # (A) 0.3 k/uL (0-0.7); Eosinophils % (A) 3 %; HCT 43.3 % (34.0-46.0); HGB 14.6 gm/dL (11.4-16.0); Lymphocytes # (A) 1.6 k/uL (1.0-4.8); Lymphocytes % (A) 15 %; MCH 28.8 pg (25.0-35.0); MCHC 33.8 g/dL (31.0-37.0); MCV 85.2 fL (80.0-100.0); Mean Platelet Volume 9.6; Monocytes # (A) 0.5 k/uL (0-1.0); Monocytes % (A) 5 %; Neutrophils % (A) 76 %; Platelet Count 231 k/uL (150-450); RBC 5.08 m/uL (3.80-5.40); RDW 13.9 % (11.5-15.5); WBC 10.6 k/uL (3.8-10.6)
[2022-12-22 13:06] LABS: African American GFR (CKD) >90 (>60 ml/min/1.73 sqM); Anion Gap 10 mmol/L; Blood Urea Nitrogen 8 mg/dL (7-17); Calcium 9.3 mg/dL (8.4-10.2); Carbon Dioxide 23 mmol/L (22-30); Chloride 101 mmol/L (98-107); Glucose 399 mg/dL (74-99); Non-African American GFR(CKD) >90 (>60 ml/min/1.73 sqM); Potassium 4.3 mmol/L (3.5-5.1); Sodium 134 mmol/L (137-145)
[2022-12-22] MEDS ORDERED: INSULIN REGULAR 100 UNIT/ML VIAL (IV) IV ONE (13:22)
[2022-12-22 13:56] LABS: Glucose,Whole Blood 299 mg/dL (70-110)
[2022-12-22 13:58] VITALS: BP 140/78; PULSE 85; RESP 16
[2022-12-22 18:53] LABS: Glucose,Whole Blood 406 mg/dL (70-110)
== END 2022-12-22 13:58 | disposition home or self-care (01) ==
LOC: EC 11:32
DX: E11.65 Type 2 diabetes mellitus with hyperglycemia (principal); E06.3 Autoimmune thyroiditis; J45.909 Unspecified asthma, uncomplicated; Z79.4 Long term (current) use of insulin; Z79.84 Long term (current) use of oral hypoglycemic drugs; Z79.899 Other long term (current) drug therapy; Z88.5 Allergy status to narcotic agent; Z88.6 Allergy status to analgesic agent
CPT/HCPCS: 36415; 80048; 81025; 82009; 85025; 96361; 96374; 99284